=== PATIENT | male | born 1990 | race African-American/Black ===

== ENCOUNTER 2018-06-03 14:16 | Emergency (ER) | payer SELFPAY ==
[~2018-06-03] VITALS: Ht 185.4 cm; Wt 88.6 kg
[2018-06-03] MEDS ORDERED: [UNRECOGNIZED DRUG - REMARK] PO (14:24)
[2018-06-03] MEDS ORDERED: ACET1TAB23 PO (14:24)
[2018-06-03 14:49] VITALS: BP 129/78
== END 2018-06-03 15:29 | disposition home or self-care (01) ==
LOC: EMS 14:17
DX: K03.6 Deposits [accretions] on teeth (principal); K02.9 Dental caries, unspecified; Z88.0 Allergy status to penicillin; Z88.8 Allergy status to other drugs, medicaments and biological substances; Z91.013 Allergy to seafood

== ENCOUNTER 2018-09-20 16:45 | Emergency (ER) | payer OTHER ==
[~2018-09-20] VITALS: Ht 182.9 cm; Wt 97.7 kg
[~2018-09-20 16:45] MED LIST: ACET1TAB23 PO; [UNRECOGNIZED DRUG - REMARK] PO
[2018-09-20] MEDS ORDERED: KETOROLAC TROMETHAMINE 60 MG/2 ML VIAL IM ONE (17:30)
[2018-09-20] MEDS ORDERED: CLINDAMYCIN HCL 150 MG CAPSULE PO ONE (17:30)
[2018-09-20 18:13] VITALS: BP 131/88
== END 2018-09-20 18:16 | disposition home or self-care (01) ==
LOC: EMS 17:27
DX: K08.89 Other specified disorders of teeth and supporting structures (principal); F17.210 Nicotine dependence, cigarettes, uncomplicated; Z88.8 Allergy status to other drugs, medicaments and biological substances; Z88.0 Allergy status to penicillin; Z91.013 Allergy to seafood
CPT/HCPCS: 96372; 99283; J1885

== ENCOUNTER 2018-12-15 12:02 | Emergency (ER) | payer OTHER ==
[~2018-12-15] VITALS: Ht 182.9 cm; Wt 93.2 kg
[2018-12-15 14:40] VITALS: BP 130/62
== END 2018-12-15 14:40 | disposition home or self-care (01) ==
LOC: EMS 12:05
DX: J02.9 Acute pharyngitis, unspecified (principal); F12.90 Cannabis use, unspecified, uncomplicated; Z88.0 Allergy status to penicillin; Z88.8 Allergy status to other drugs, medicaments and biological substances; Z91.013 Allergy to seafood

== ENCOUNTER 2018-12-20 16:07 | Emergency (ER) | payer OTHER ==
[~2018-12-20] VITALS: Ht 182.9 cm; Wt 93.2 kg
[2018-12-20] MEDS ORDERED: ANTIBIOTIC PO (16:39)
[2018-12-20] MEDS ORDERED: IBUPROFEN 800 MG TABLET PO ONE (16:45)
[2018-12-20 16:57] VITALS: BP 114/63
== END 2018-12-20 17:01 | disposition home or self-care (01) ==
LOC: EMS 16:08
DX: K08.89 Other specified disorders of teeth and supporting structures (principal); F12.90 Cannabis use, unspecified, uncomplicated; Z88.0 Allergy status to penicillin; Z88.8 Allergy status to other drugs, medicaments and biological substances; Z91.013 Allergy to seafood

== ENCOUNTER 2019-02-15 09:01 | Emergency (ER) | payer OTHER ==
[~2019-02-15] VITALS: Ht 185.4 cm; Wt 88.6 kg
[~2019-02-15 09:01] MED LIST changes: -ACET1TAB23 PO; +ANTIBIOTIC PO; -[UNRECOGNIZED DRUG - REMARK] PO
[2019-02-15 10:30] VITALS: BP 129/78
[2019-02-15] MEDS ORDERED: CLINDAMYCIN HCL 150 MG CAPSULE PO ONE (11:00)
[2019-02-15] MEDS ORDERED: IBUPROFEN 800 MG TABLET PO ONE (11:00)
== END 2019-02-15 11:26 | disposition home or self-care (01) ==
LOC: EMS 09:02
DX: S02.5XXA Fracture of tooth (traumatic), initial encounter for closed fracture (principal); K04.7 Periapical abscess without sinus; F12.90 Cannabis use, unspecified, uncomplicated; Z91.041 Radiographic dye allergy status; Z88.0 Allergy status to penicillin; Z91.013 Allergy to seafood; Z98.890 Other specified postprocedural states; X58.XXXA Exposure to other specified factors, initial encounter; Y93.89 Activity, other specified; Y92.89 Other specified places as the place of occurrence of the external cause; Y99.8 Other external cause status

== ENCOUNTER 2019-02-28 10:47 | Emergency (ER) | payer OTHER ==
[~2019-02-28] VITALS: Ht 188 cm; Wt 93.2 kg
[2019-02-28] MEDS ORDERED: LIDOCAINE 5% TRANSDERMAL PATCH TD ONE (12:15)
[2019-02-28 14:20] VITALS: BP 141/71
== END 2019-02-28 14:38 | disposition home or self-care (01) ==
LOC: EMS 10:48
DX: S39.012A Strain of muscle, fascia and tendon of lower back, initial encounter (principal); X50.9XXA Other and unspecified overexertion or strenuous movements or postures, initial encounter; Y93.89 Activity, other specified; Y92.89 Other specified places as the place of occurrence of the external cause; Y99.8 Other external cause status

== ENCOUNTER 2019-03-19 00:42 | Emergency (ER) | payer OTHER ==
[~2019-03-19] VITALS: Ht 182.9 cm; Wt 88.6 kg
[2019-03-19 00:57] LABS: APPEARANCE,URINE CLEAR (CLEAR); BILIRUBIN,URINE NEGATIVE (NEGATIVE); GLUCOSE, URINE (UA) NEGATIVE (NEGATIVE); KETONES,URINE NEGATIVE (NEGATIVE); LEUKOCYTE ESTERASE ,URINE NEGATIVE (NEGATIVE); NITRATE,URINE NEGATIVE (NEGATIVE); OCCULT BLOOD,URINE NEGATIVE (NEGATIVE); PROTEIN,URINE NEGATIVE (NEGATIVE); UROBILINOGEN,URINE 0.2 mg/dL (<=1.0)
[2019-03-19 01:10] VITALS: BP 138/70
== END 2019-03-19 01:55 | disposition home or self-care (01) ==
LOC: EMS 00:44
DX: R30.0 Dysuria (principal)

== ENCOUNTER 2019-04-08 14:30 | Emergency (ER) | payer OTHER ==
[~2019-04-08] VITALS: Ht 185.4 cm; Wt 90.9 kg
[2019-04-08] MEDS ORDERED: IBUP-2070 PO (14:50)
[2019-04-08] MEDS ORDERED: AMOX500C2 PO (14:50)
[2019-04-08] MEDS ORDERED: ACETAMINOPHEN 325 MG TABLET PO ONE (15:00)
[2019-04-08 17:19] VITALS: BP 139/62
== END 2019-04-08 17:24 | disposition left against medical advice (07) ==
LOC: EMS 14:31
DX: R07.89 Other chest pain (principal); Z53.21 Procedure and treatment not carried out due to patient leaving prior to being seen by health care provider
CPT/HCPCS: 93005